=== PATIENT | female | born 1975 | race African-American/Black ===

== ENCOUNTER 2016-10-10 10:12 | Emergency (ER) | payer OTHER ==
--- NOTE | ~2016-10-10 | CR206 ---
[facility]. [facility] A Service of [facility] & [facility] / [facility] RADIOLOGY TEXT RESULTS PATIENT: ADA PEDROZA LOCATION: SED : 75 UNIT #: [id number] AGE: [address]: Denis Ramirez MD SEX: F ORDER DR: [id number] [place] [id number] E MR#: [id number] Acc #: [id number] NAME: ADA PEDROZA : 1975 SEX: F STUDY DATE/TIME: 10/10/2016 10:49 UNIT: SED ROOM: STUDY DESCRIPTION: CR Pelvis 1 or 2 Views Attending Physician: Denis Ramirez M.D. Ordering Physician: Denis Ramirez M.D. Primary Care Physician: Kaden Alcaraz M.D. MEDICAL IMAGING REPORT This report is preliminary unless electronic signature is present. EXAM Single view pelvis INDICATION Pelvic pain for 2 days after falling. COMPARISON 12/08/2016 FINDINGS There is no evidence for fracture or dislocation. IMPRESSION No evidence of fracture. Dictated by... Chris Acosta M.D. THIS IS AN ELECTRONICALLY VERIFIED REPORT Chris Acosta M.D. at 10/12/2016 12:37 PM Naz TD: 10/10/2016 13:13 JOB #: [id number] MEDICAL IMAGING REPORT Page 1 of 1
[~2016-10-10 10:12] MED LIST: ACYCLOVIR400 MG PO; AMOXICILLIN875 MG PO; AMOXIL500 MG PO; ATARAX PO; BACTRIM DS TABL1 TA1 PO; BENTYL20 MG PO; BP MED; CIPRO HC OTIC S10 ML AS; CLEOCIN150 M1 PO; DELTASONE20 MG PO; DICLOFENAC PO; FLEXERIL PO; FLUOXETINE HCL20 M1 PO; GABAPENTIN400 M2 PO; HCTZ PO; HUMALOG MIX 75/23 ML SUBQ; HUMALOG100 U/ML SUBQ; HUMULIN 70/30 V10 ML SUBQ; HYDRALAZINE HC100 MG PO; HYDROCHLOROTHIA25 MG PO; INSULIN; INSULIN PUMP; JANUVIA100 MG PO; LANTUS100 UNITS/ SUBQ; LEVOFLOXACIN5 ML OS; LISINOPRIL-HCTZ1 T15 PO; LISINOPRIL-HCTZ1 T21 PO; LORTAB 5/500 TA1 TA1 PO; METFORMIN HCL500 M1 PO; METFORMIN PO; MOBIC PO; MULTI VITAMIN1 EACH PO; PEN-VEE K PO; PERCOCET 10/31 UDTA1 PO; PERCOCET 71 UDTAB 7. PO; PERCOCET7.5 PO; PREDNISOLONE5 MG PO; PREDNISONE PO; PRINIVIL40 MG PO; PROMETHAZINE D118 ML PO; PROMETHAZINE-D240 ML PO; SARAFEM20 MG PO; TESSALON PERLE100 M1 PO; TOPAMAX PO; TOPROL XL50 MG PO; TYLENOL #3 PO; ULTRAM PO; VICODIN 5/1 TAB 5/50 PO; VICODIN PO; VITAMIN D250000 UNIT PO; VITAMIN D50000 UNIT PO; YAZ 28 TABLET1 TAB PO; ZITHROMAX PO; [UNRECOGNIZED DRUG - REMARK]
[2016-10-10] MEDS ORDERED: JANUVIA25 MG PO (10:20)
[2016-10-10] MEDS ORDERED: METFORMIN PO (10:20)
== END 2016-10-10 11:19 | disposition home or self-care (01) ==
LOC: SED 10:12
DX: S30.0XXA Contusion of lower back and pelvis, initial encounter (principal); J44.9 Chronic obstructive pulmonary disease, unspecified; Z90.710 Acquired absence of both cervix and uterus; Z86.14 Personal history of Methicillin resistant Staphylococcus aureus infection; Z88.1 Allergy status to other antibiotic agents; Z88.5 Allergy status to narcotic agent; W01.0XXA Fall on same level from slipping, tripping and stumbling without subsequent striking against object, initial encounter; Y92.009 Unspecified place in unspecified non-institutional (private) residence as the place of occurrence of the external cause
CPT/HCPCS: 72170; 99283